=== PATIENT | male | born 1950 | race Caucasian/White ===

== ENCOUNTER → 2016-07-04 09:33 | Day surgery (SDC) | payer MEDICARE, BC ==
--- NOTE | 2016-06-12 10:07 | HP ---
PREOPERATIVE HISTORY AND PHYSICAL: DATE OF ADMISSION: 07/04/16 This patient is scheduled for same-day surgery admission by Dr. Sears on 07/04/16. DATE OF PREOPERATIVE HISTORY AND PHYSICAL EXAMINATION: , 06/08/16. ATTENDING SURGEON: Dr. Nicko Sears (dictated by Mecca Levy NP). CHIEF COMPLAINT: Right inguinal hernia and umbilical hernia. HISTORY OF PRESENT ILLNESS: The patient is a 66-year-old male recently evaluated by Dr. Sears for a right inguinal hernia and a small umbilical hernia. The patient states he has had the umbilical hernia for many years. He noticed the right inguinal hernia about 6 months ago following episodes of coughing when he had an upper respiratory infection. He saw the hernia protrude on a number of occasions and has been able to manually reduce it. He has altered his activity because of the inguinal hernia. He denies any nausea, vomiting, constipation, or dysuria. He denies any signs or symptoms to suggest incarceration or strangulation of either hernia. Dr. Sears examined the patient and has recommended laparoscopic repair of the right inguinal hernia with mesh and open umbilical hernia repair at the same setting. Dr. Sears discussed the nature of hernias, the rationale for elective repair, the relevant risks, benefits, and alternatives, and today, I reviewed typical postoperative care and recovery. The patient has had a chance to ask questions and stated that he understands the information and is satisfied with the answers given to his questions. He will sign surgical consent on the day of surgery. PAST MEDICAL HISTORY: Elevated cholesterol. PAST SURGICAL HISTORY: Limited to excision of a cyst on one of his fingers under local anesthesia as an office procedure over 20 years ago. MEDICATIONS: 1. WelChol 625 mg 3 tablets b.i.d. 2. Vitamin D3 for a total of 25,000 International Units weekly. 3. Meloxicam p.r.n. back pain and when he takes the meloxicam, he takes a dose of omeprazole. ALLERGIES: No known drug allergies. No latex or food allergies. FAMILY HISTORY: Mother , age 86, with a history of breast cancer. Father , age 86, with heart disease, hypertension, and diabetes. No known anesthesia reactions, bleeding tendencies, or clotting disorders in the family. 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 He smokes a rare cigar and denies the use of cigarettes. He denies the use of alcohol or other substances. REVIEW OF SYSTEMS: He denies any constitutional complaints. Respiratory: No chronic cough. No shortness of breath. Cardiac: No chest pain, palpitations, or chest pressure. No history of deep vein thrombosis or pulmonary embolism. No previous anesthesia complications. Gastrointestinal: As described in history of present illness. He does have a history of colon polyps. Genitourinary: Denies hesitancy or urgency and reports occasional nocturia. Musculoskeletal: Occasional back pain. Neurologic: No complaints. PHYSICAL EXAMINATION GENERAL SURVEY: The patient is a 66-year-old male, well developed, well nourished, in no acute distress. VITAL SIGNS: Height 67 inches, weight 145 pounds, body mass index 22.7, blood pressure 116/70, pulse 78 and regular, respiratory rate 16, temperature 98.1 tympanic. HEENT: Benign. NECK: Supple. No cervical lymphadenopathy. BACK: No CVA tenderness. LUNGS: Breath sounds bilaterally clear and equal. HEART: Regular rate and rhythm. No murmurs or rubs appreciated. ABDOMEN: Active bowel sounds. Soft, nondistended, nontender throughout. There is a small reducible umbilical hernia 1 cm or less in size. No other palpable masses or organomegaly. Inguinal exam as done by Dr. Sears revealed a palpable reducible right inguinal hernia. No hernia palpated on the left, bilateral descended testes. RECTAL: Exam deferred. EXTREMITIES: Warm without edema or skin ulcerations. NEUROLOGIC: Alert and oriented x3. Steady gait. SKIN: Warm, dry, and intact. IMPRESSION: 1. Right inguinal hernia. 2. Umbilical hernia. PLAN: Same-day surgery admission to Dr. Sears' service on 07/04/16, for laparoscopic repair of right inguinal hernia with mesh and open umbilical hernia repair. MECCA LEVY NP CC: Dr. eS[facility], [facility]; Dr. Overton * [id number]/[facility] #: [id number] [facility]
[~2016-07-04 09:33] MED LIST: Buffered Lidocaine 1% SYRIN* 3 ML/SYR SYRINGE INTRADERM ONE; Bupivacaine 0.5% W/EPI SDV* 30 ML VIAL ONE; Chloroprocaine 3%* 20 ML VIAL ONE; Ondansetron INJ* 2 MG/ML VIAL IV PRN; ceFAZolin 2 GM PREMIX(*) 2 GM/50 ML BAG IVPB ONE
[2016-07-04 15:20] VITALS: BP 131/87
--- NOTE | 2016-07-05 04:27 | OP ---
DATE OF OPERATION: 07/04/16 - [facility] DATE OF : 52 SURGEON: Nicko Sears MD CLINICAL SUPPORT MANAGER: RENEA Robledo ANESTHESIOLOGIST: Dr. Meyers. ANESTHESIA: Epidural and local. PRE-OP DIAGNOSES: Right inguinal hernia and umbilical hernia. POST-OP DIAGNOSES: Right inguinal hernia and umbilical hernia. OPERATIVE PROCEDURE: Laparoscopic preperitoneal repair of right inguinal hernia with mesh and open repair of umbilical hernia with primary closure. ESTIMATED BLOOD LOSS: Minimal. IV FLUIDS: Crystalloid. SPECIMEN: None. DRAINS: None. COMPLICATIONS: None. COUNTS: Instrument, needle, and sponge counts were correct. DESCRIPTION OF PROCEDURE: The patient was brought to the operating room and placed on the table supine. The patient had received the epidural catheter preoperatively and the Philippe catheter was placed. He was prepped and draped in the usual sterile fashion and then time-out was performed. He did receive appropriate intravenous antibiotics. Local anesthetic was infiltrated into the skin and soft tissue prior to making each incision. A curvilinear infraumbilical incision was created and subcutaneous tissues were divided with cautery. The rectus fascia was identified to the right of midline infraumbilically and this was incised transversely and then the underlying muscles retracted laterally and a blunt dissection was performed bluntly with 10-mm biopsy spoon. The 10 mm 30-degree angle laparoscope was then introduced and this was through a 12 mm blunt port. Carbon dioxide was then insufflated to pressure of 10 mmHg. Under direct visualization, two 5 mm trocars were placed in the lower midline. The blunt dissection was then initiated in the midline identifying the pubic symphysis and then tracking laterally to identify the Ted's ligament. The inferior epigastric vessels which were maintained in the anterior position and extended the dissection out laterally to the level of anterosuperior iliac spine. There was indirect inguinal hernia noted and some weakness in the direct space as well. The indirect inguinal hernia sac was completely reduced and during this maneuver, there was some slight tear in the peritoneum, which was subsequently closed with endoscopic clips. In order to perform the repair, a Bard 3D max mesh medium size patch was used. This was placed into the preperitoneal space and it was unfurled to cover the direct, indirect, and femoral spaces. Spinal tacker was used to secure the mesh at the pubic tubercle and Ted's ligament. The mesh was held in position as the space was desufflated to assure its proper position. The ports were then removed and the rectus fascia to the right of midline was closed with #1 Polysorb in an interrupted [id number] fashion. All of the skin incisions were closed with 4-0 Monocryl and Steri-Strips were applied. The patient tolerated the procedure well. The patient was transferred to the recovery room in stable condition. CC: Nohemi Overton MD* [id number]/[facility] #: [id number]
== END | disposition home or self-care (01) ==
LOC: OR 09:33
PROVIDERS: ATTEND Surgery
DX: K40.90 Unilateral inguinal hernia, without obstruction or gangrene, not specified as recurrent (principal); K42.9 Umbilical hernia without obstruction or gangrene; E78.00 Pure hypercholesterolemia, unspecified
CPT/HCPCS: C1776; C1781; J0690; J2400